=== PATIENT | female | born 1985 | race Two or more races ===

== ENCOUNTER → 2017-09-30 | Day surgery (SDC) | payer OTHER ==
[~2017-09-30] MED LIST: PERCOCET 5-3251 EACH PO
== END | disposition home or self-care (01) ==
LOC: ADM 09-25 09:30 → CIR.AMB 06:52
DX: C73 Malignant neoplasm of thyroid gland (principal)

== ENCOUNTER → 2017-10-07 | Emergency (ER) | payer OTHER ==
[~2017-10-07] VITALS: Ht 154.9 cm; Wt 53.1 kg
== END | disposition home or self-care (01) ==
LOC: ER 20:01
DX: R53.1 Weakness (principal); E86.0 Dehydration